=== PATIENT | male | born 2000 | race Caucasian/White ===

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

== ENCOUNTER 2025-07-14 14:17 | Emergency (ER) | payer OTHER, SELFPAY ==
[2025-07-14 14:18] VITALS: BP 151/91; PULSE 85; RESP 16; TEMP 36.9; O2SAT 99; BMI 31.4
--- NOTE | 2025-07-14 16:08 | CT_ITS ---
PROCEDURE: ABDOMEN/PELVIS W IV CONT ONLY 07/14/2025 REASON FOR EXAM: ABD PAIN TECHNIQUE: ABDOMEN/PELVIS W IV CONT ONLY Coronal and Sagittal reconstruction series were provided. CONTRAST: 100 mL of Isovue 370 One or more dose reduction techniques were used (e.g., Automated exposure control, adjustment of the mA and/or kV according to patient size, use of iterative reconstruction technique. RADIATION DOSE SUMMARY: DLP: 652 mGycm COMPARISON: none FINDINGS: Limited sections of the lung bases demonstrate no focal pulmonary mass or consolidations. The liver, spleen, pancreas, and both adrenal glands demonstrate no acute findings. The gallbladder is unremarkable. The stomach is unremarkable. The small bowel loops are not dilated. The appendix is not clearly identified, although there are no secondary signs of appendicitis. No colonic obstruction. There is no free air or significant free fluid. The kidneys are unremarkable. The urinary bladder is partially distended. The pelvic structures are intact. There is no solid pelvic mass. No significant lymphadenopathy. The aorta and IVC demonstrate no acute findings. 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 No acute fractures. CT/Abdomen/Pelvis W IV Cont ONLY IMPRESSION: No acute intra-abdominal process. 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 Reading Location: [facility]
--- NOTE | 2025-07-14 16:09 | ED.VIS.GI ---
HPI HPI - GI History of Present Illness Chief Complaint: Abd Pain Informant: patient and family Narrative Narrative: Presents here with sister for evaluation. States been having upper abdominal pain for last 2 weeks worse after meals. Sometimes right away sometimes up to 30 minutes. He does eat fast foods. He went to urgent care a week ago referred to GI for which he saw this past Monday through [facility]. He had right upper quadrant ultrasound performed told it was negative. He was put on pantoprazole. Over the weekend pain again with food yesterday ate pizza with pain got more intense. Today had 2 bites of peanut butter at noon and symptoms started. No black or bloody stools. He does drink alcohol however has decreased since onset of symptoms. Subjective fevers. No cough no urinary symptoms. No abdominal surgeries. I reviewed the patient's workup through [facility] right upper quadrant ultrasound normal gallbladder structure no cholelithiasis was noted. Labs including lipase was normal. PFSH PFS Medical History emily anal abscess Home Medications ?Medication ?Instructions ?Recorded ?Last Taken ?Type pantoprazole 40 mg tablet,delayed 40 mg PO DAILY 07/14/25 07/14/25 History release sucralfate 1 gram tablet (Carafate) 1 g PO Q6H #60 tabs 07/14/25 Unknown Rx Allergy/AdvReac Type Severity Reaction Status Date / Time No Known Allergies Allergy Verified 07/14/25 14:19 Family History Mother Diabetes Surgical History history incision and drainage emily anal abscess (~12/29/20) Social History Smoking Status: Current every day smoker tobacco type: cigarettes alcohol intake: never substance use type: does not use ROS ROS ED Constitutional Constitutional ED: Denies chills, fever(s) or sweats ENT ENT ED: Denies sore throat Cardiovascular Cardiovascular: Denies chest pain, leg edema, palpitations or racing heartbeat Respiratory/Chest Respiratory/Chest: Denies cough, dyspnea or dyspnea on exertion Gastrointestinal Gastrointestinal: Reports abdominal pain; Denies diarrhea, melena, nausea or vomiting Genitourinary Genitourinary ED: Denies dysuria, hematuria or urinary frequency Musculoskeletal Musculoskeletal: Denies back pain, extremity pain or neck pain Integumentary Denies rash or wounds Neurologic Neurologic: Denies headache(s), paresthesias or weakness EXAM Physical Exam Const Vital Signs: 07/14/25 14:18 07/14/25 16:17 07/14/25 18:00 Temperature 98.5 F Temperature Source Oral Pulse Rate 85 61 93 Respiratory Rate 16 22 H Blood Pressure 151/91 H 129/83 H 158/81 H Blood Pressure Mean 111 98 106 Pulse Ox 99 94 97 Oxygen Delivery Method Room Air Room Air Room Air 07/14/25 18:49 Temperature 97.8 F Temperature Source Pulse Rate 79 Respiratory Rate 16 Blood Pressure 144/86 H Blood Pressure Mean 105 Pulse Ox 100 Oxygen Delivery Method Positive well nourished and well developed General Appearance ED: well developed and NAD HEENT Reports moist mucous membranes normocephalic and atraumatic Eyes General Eye ED: Yes normal appearance of both eyes Neck full ROM Chest Wall Chest: Negative for tenderness Resp normal respiratory effort and normal air movement Effort and Inspection: symmetric chest movement; Negative for respiratory distress Cardio regular rate, regular rhythm and no murmurs Peripheral Pulses: pulses 2+ throughout GI normal to inspection, nondistended, normoactive bowel sounds GI Narrative: Mild pain across the upper abdomen. Negative McBurney's. Palpation: Negative for guarding or rebound tenderness present Extremity normal to inspection General Extremety ED: Negative for edema or tenderness General Extremity: Negative for edema Neuro oriented x3 and no sensory deficits noted Sensorium / Orientation: awake and alert Skin no rashes or lesions noted and no wounds MDM MDM MDM Narrative Medical decision making narrative: Interventions / MDM: Differential diagnosis: Biliary colic, gastritis Diagnosis considered but do not suspect: Cholecystitis however labs were normal recent normal ultrasound no guarding or rebound. Pancreatitis however lipase normal. My EKG interpretation: N/A Imaging independently reviewed and interpreted by myself: CT abdomen pelvis IV contrast: No acute process also read by radiology. External documents reviewed: N/A Test considered but not ordered:N/A ED course: Patient history symptoms appears to be biliary colic however he had a normal ultrasound Monday that was confirmed by myself on the read. He is currently symptoms settle down he states he is just nervous. I will recheck abdominal labs I will obtain a CT scan abdomen pelvis IV contrast for further evaluation. Labs normal CT scan negative. On reevaluation symptom-free. Discussed with patient will add Carafate. He will monitor stools for any black or bloody stools. Discussed with him to contact his GI team for possible HIDA scan as an outpatient. All questions were answered. Re-evaluation: stable Disposition discussed with patient/family/significant other: Patient and sister Case discussed with consulting clinician: N/A This note was generated with [employer] dictation software. It may contain incorrect words, spelling, and punctuation that were not noted in checking the note before signing. Lab Data Attestation: I reviewed the patient's lab results. Labs: Laboratory Results - last 24 hr 07/14/25 16:03 WBC 8.5 RBC 5.44 Hgb 16.9 H Hct 47.0 MCV 86.4 MCH 31.1 MCHC 36.0 RDW Std Deviation 34.8 L RDW Coeff of Lilia 11.0 L Plt Count 280 MPV 10.6 Immature Gran % (Auto) 0.400 Neut % (Auto) 60.6 Lymph % (Auto) 29.3 Kern % (Auto) 6.5 Eos % (Auto) 2.4 Baso % (Auto) 0.8 Absolute Neuts (auto) 5.1 Absolute Lymphs (auto) 2.48 Nucleated RBC % 0 Sodium 142 Potassium 3.6 Chloride 103 Carbon Dioxide 24.6 Anion Gap 14 BUN 13 Creatinine 0.81 Estim Creat Clear Calc 177.85 Est GFR (MDRD) Non-Af 127 BUN/Creatinine Ratio 16.2 Glucose 92 Calcium 10.3 Total Bilirubin 0.59 AST 43 H ALT 85 H Alkaline Phosphatase 46 Total Protein 8.3 Albumin 5.3 H Globulin 2.9 Albumin/Globulin Ratio 1.8 Lipase 36 Radiography Diagnostic Testing: Clinical Impression(s) from Imaging Studies Abdomen/Pelvis CT 07/14/25 16:08 IMPRESSION: No acute intra-abdominal process. 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 Reading Location: [facility] Discharge Plan Triage Chief Complaint: Abd Pain ED Provider: Jose Alberto Bonilla Dx/Rx/DC Orders Clinical Impression: Gastritis, Biliary colic Instructions: ED Gastritis (Adult) Prescriptions: New sucralfate [Carafate] 1 gram tablet 1 g PO Q6H Qty: 60 0RF No Action pantoprazole 40 mg tablet,delayed release (DR/EC) 40 mg PO DAILY Stand Alone Forms: ED Work / School Excuse Primary Care Provider: Care Physician,No Primary Referrals: Weston Solorzano MD [Non-Staff] - Activity Restrictions/Additional Instructions: Your abdominal labs were normal. Your CT scan abdomen pelvis also negative. Continue your pantoprazole take Carafate as prescribed. Watch for any black or bloody stools. You had normal gallbladder ultrasound outpatient. Discussed with your GI team possibility of HIDA scan for further testing if you still have symptoms. Print Language: Yoruba Disposition Disposition: Home, Self Care Discharge Date/Time: 07/14/25 18:49
[2025-07-14] MEDS: 0.9% Normal Saline (1000mL) 1,000 ML 999 ML IV (16:12)
[2025-07-14 16:17] VITALS: BP 129/83; PULSE 61; RESP 22; O2SAT 94
[2025-07-14 16:34] LABS: Hematocrit 47.0 % (40-54); Hemoglobin 16.9 g/dL (13.0-16.5); Immature Granulocytes Count 0.030 X10^3/uL (0.0-0.0); Mean Corp Hgb Conc 36.0 g/dL (32-36); Mean Corpuscular Volume 86.4 fL (80-94); Mean Platelet Vol. 10.6 fl (6.2-12.0); NRBC Flagged by Analyzer 0 % (0-5); Platelet Count 280 K/mm3 (150-450); RBC Distribution Width CV 11.0 % (11.6-14.6); RBC Distribution Width SD 34.8 fl (35.1-43.9); Red Blood Count 5.44 M/mm3 (4.6-6.2); White Blood Count 8.5 K/mm3 (4.4-11.0)
[2025-07-14 16:44] LABS: AST(SGOT) 43 U/L (<=37); Alanine Aminotransfer ALT/SGPT 85 U/L (<=46); Albumin, Serum 5.3 g/dL (3.5-5.0); Alkaline Phosphatase 46 U/L (40-129); Anion Gap 14 (5-15); BUN 13 mg/dL (4-19); BUN/Creat Ratio 16.2 RATIO (10-20); Calcium,Total 10.3 mg/dL (7.6-11.0); Carbon Dioxide 24.6 mmol/L (21.0-32.0); Chloride 103 mmol/L (98-108); Estimated Creatinine Clearance 177.85 ml/min (50-250); Globulin 2.9 g/dL (2.2-4.2); Glucose 92 mg/dL (70-99); Lipase 36 U/L (13-75); Potassium 3.6 mmol/L (3.3-5.1)
[2025-07-14 18:00] VITALS: BP 158/81; PULSE 93; O2SAT 97
[2025-07-14 18:49] VITALS: BP 144/86; PULSE 79; RESP 16; TEMP 36.6; O2SAT 100
== END 2025-07-14 18:49 | disposition home or self-care (01) ==
PROVIDERS: Emergency Provider Emergency Medicine; Visit Provider Emergency Medicine
DX: K29.70 Gastritis, unspecified, without bleeding (principal); K80.50 Calculus of bile duct without cholangitis or cholecystitis without obstruction; R10.10 Upper abdominal pain, unspecified; F17.210 Nicotine dependence, cigarettes, uncomplicated
CPT/HCPCS: 74177; 80053; 83690; 85025; 96360; 99283; Q9967